=== PATIENT | male | born 1945 | race Caucasian/White ===

== ENCOUNTER 2016-05-20 09:15 | Outpatient (CLI) | payer MEDICARE, OTHER ==
[~2016-05-20] VITALS: Ht 172.7 cm; Wt 81.6 kg
[~2016-05-20 09:15] MED LIST: DIVA500T PO; IBUP-1780 PO; LEVE500T99 PO
[2016-05-21] MEDS ORDERED: PANT40TA2 PO (12:07)
== END 2016-05-20 11:02 ==
LOC: PREOP 09:15
PROVIDERS: ATTEND Surgery Pediatric Surgery
DX: Z01.818 Encounter for other preprocedural examination (principal); Z12.11 Encounter for screening for malignant neoplasm of colon; K21.9 Gastro-esophageal reflux disease without esophagitis

== ENCOUNTER 2016-05-21 09:39 | Day surgery (SDC) | payer MEDICARE, OTHER ==
[~2016-05-21] VITALS: Ht 172.7 cm; Wt 81.6 kg
[2016-05-21 09:40] VITALS: BP 112/89
--- NOTE | 2016-05-21 09:50 | Conscious Sedation/ASA ---
Conscious Sedation Pre-Proced Time Reviewed: 09:50 ASA Class: 2 Airway Mallampati Classification: ([place] appropriate class) I. II. III, IV Lungs Heart ASA score ASA 1: a normal healthy patient ASA 2: a patient with a mild systemic disease (mid diabetes, controlled hypertension, obesity ASA 3: a patient with a severe systemic disease that limits activity (angina , COPD, prior Myocardial infarction) ASA 4: a patient with an incapacitating disease that is a constant threat to life (CHF, renal failure) ASA 5: a moribund patient not expected to survive 24 hrs. (ruptured aneurysm) ASA 6: a declared brain patient whose organs are being harvested. For emergent operations, add the letter E after the classification Grade 2 Sedation Plan: Analgesia, Amnesia, Plan communicated to team members, Discussed options with patient/fam, Discussed risks with patient/fam Note The patient is an appropriate candidate to undergo the planned procedure, sedation, and anesthesia. The patient immediately re-assessed prior to indication. ANH SIMMS MD May 21, 2016 9:50 am
--- NOTE | 2016-05-21 09:51 | Progress Note-Pre Operative ---
Pre-Operative Progress Note H&P Reviewed The H&P was reviewed, patient examined and no changes noted. Date H&P Reviewed: May 21, 2016 Time H&P Reviewed: 09:50 Pre-Operative Diagnosis: GERD, family hx colon ca ANH SIMMS MD May 21, 2016 9:51 am
[2016-05-21] MEDS ORDERED: ONDANSETRON 4 MG/2 ML (SDV) Z0FRAN IV PRN (10:00)
[2016-05-21] MEDS ORDERED: NS IV 500 ML 500 ML IV ONE (10:00)
[2016-05-21] MEDS ORDERED: HYDROcodone/APAP 5 MG/325 MG (LORTAB) TAB PO PRN (10:00)
[2016-05-21] MEDS ORDERED: ACETAMINOPHEN 325 MG TABLET/CAPLET (TYLENOL) PO PRN (10:00)
[2016-05-21] MEDS ORDERED: NALOXONE 0.4 MG/ML 1 ML (NARCAN) VIAL IVP PRN (10:00)
[2016-05-21] MEDS ORDERED: morphine INJ 10 MG/ML 1ML (SYR OR VIAL) IV PRN (10:00)
[2016-05-21] MEDS ORDERED: FLUMAZENIL (ROMAZICON) 0.1 MG/ML 5 ML VIAL INJ PRN (10:00)
[2016-05-21] MEDS ORDERED: MIDAZOLAM 2 MG/2 ML (VERSED) VIAL ONE ×4 (10:41→10:42)
[2016-05-21] MEDS ORDERED: LIDOCAINE JELLY 2% (XYLOCAINE) 5 ML TUBE ONE (10:42)
[2016-05-21] MEDS ORDERED: HURRICAINE EXT TUBE (BENZOCAINE) ONE (10:42)
[2016-05-21] MEDS ORDERED: fentaNYL INJECTION 100 MCG/2 ML AMP ONE ×2 (10:42)
[2016-05-21] MEDS: fentaNYL INJECTION 100 MCG/2 ML AMP IVP PRN ×2 (11:10→11:36)
[2016-05-21] MEDS: MIDAZOLAM 2 MG/2 ML (VERSED) VIAL IVP PRN ×3 (11:12→11:40)
[2016-05-21] MEDS ORDERED: PANT40TA2 PO (12:07)
--- NOTE | 2016-05-21 12:07 | Progress Note-Post Operative ---
Post-Operative Progess Note Surgeon (s)/Ornamental Metal Worker Helper (s) Surgeon ANH SIMMS MD Ornamental Metal Worker Helper: none Pre-Operative Diagnosis GERD, family hx colon ca Post-Operative Diagnosis reflux esophagitis(class B), small HH(1.5cm), moderate gastritis. chronic stage 2 ext and int hemorrhoids, mild sigmoid diverticulosis. Post-Op Procedure Note Date of Procedure: May 21, 2016 Name of Procedure Performed: EGD with bx. Colonoscopy. Description of the Procedure: EGD with bx. Colonoscopy. Findings of the Procedure . Anesthesia Type CS Estimated blood loss (mL): minimal Specimen(s) collected/removed ge jxn, antrum ANH SIMMS MD May 21, 2016 12:07 pm
--- NOTE | 2016-05-21 12:08 | Discharge Inst-Surgical ---
D/C Lap Instructions-MENDEZ New, Converted, or Re-Newed RX: RX on Chart Follow Up 10 years Activity as tolerated High Fiber Diet 25g or more per day Avoid Alcohol, Caffeine, Spicy [place] and Acid foods. Drink 64 fluid oz or more of fluids per day. Symptoms to Report: Fever over 101 degree F, Nausea/Vomiting If any problems/questions: Contact your physician or go to Emergency Room ANH SIMMS MD May 21, 2016 12:08 pm
[2016-05-21 12:20] VITALS: BP 101/63
[2016-05-21 12:45] VITALS: BP 114/83
[2016-05-21 12:57] VITALS: BP 114/83
--- NOTE | 2016-05-22 06:40 | OPERATIVE REPORT ---
PROCEDURE PHYSICIAN: ANH WILLIAMSON DATE OF PROCEDURE: 05/21/2016 ATTENDING PRIMARY CARE PHYSICIAN: Dr. Carol Soliz. PREOPERATIVE DIAGNOSES: 1. Gastroesophageal reflux disease. 2. Peptic ulcer disease. 3. Screening colonoscopy. POSTOPERATIVE DIAGNOSES: 1. Reflux esophagitis, class B. 2. Small hiatal hernia, approximately 1.5 cm in size. 3. Moderate severity gastritis. 4. Chronic, stage II external and internal hemorrhoids. 5. Mild sigmoid diverticulosis. PROCEDURES: 1. EGD with biopsy. 2. Colonoscopy. SURGEON: Dr. Williamson. ANESTHESIA: Conscious sedation. ESTIMATED BLOOD LOSS: Minimal. FINDINGS: EGD: 1. Reflux esophagitis, class B. 2. No ulcers or strictures. 3. Small hiatal hernia 1.5 cm in size. 4. Moderate severity gastritis with no formal ulcerations. 5. The pylorus and duodenum appeared normal. COLONOSCOPY: 1. Chronic, stage II external and internal hemorrhoids, not actively edematous or inflamed and no bleeding. 2. Prostate gland was palpable and appeared normal. There was a mild sigmoid diverticulosis. 3. There were no polyps or any neoplasms identified. DISPOSITION: The patient tolerated the procedures well. Mr. Nathan Hummel is a 70-year-old male who has had issues with gastroesophageal reflux disease. However, this has worsened in the past several years. He does feel an epigastric burning sensation as well as crampy pain. He also is in need of a screening colonoscopy. His last colonoscopy was greater than 10 years ago, however he does believe that to be normal. He does have a family history of colon cancer with his father having the disease. PROCEDURE: EGD: The patient was brought to endoscopy suite, laid in the left lateral decubitus position with the head slightly elevated. After adequate IV pain and sedative medications and conscious sedation anesthesia, the mouthpiece was applied. The endoscope was placed in the mouth, visualizing the pharynx and hypopharyngeal region. Vocal cords, epiglottis and vallecula identified and appeared to be normal. The endoscope was then intubated into the esophageal opening and the esophagus insufflated. The endoscope was then advanced through the first, second, and 3rd portions of the esophagus at the level of the GE junction, a reflux esophagitis, class B identified. There were no ulcers or strictures identified. A biopsy was taken with forceps of visualization of good hemostasis. The endoscope was then easily advanced into stomach and endoscope retroflexed visualizing a small hiatal hernia, approximately 1.5 cm in size. There was a moderate severity gastritis noted more towards the stomach antrum. There were no formal ulcerations or any neoplasms. A biopsy was taken of the antrum with forceps with visualization of good hemostasis. The endoscope was advanced through the pylorus and first and second portions of duodenum which appeared normal. The endoscope was then slowly withdrawn while taking a second look and suctioning of residual air with no additional findings. The patient tolerated this portion of the procedure well. For his reflux esophagitis, hiatal hernia and gastritis, we will start him on Protonix 40 mg daily, as well as the necessary lifestyle and diet accommodation including smaller, more frequent meals, avoidance of eating at night, as well as head elevation while laying supine. We will also start him on pantoprazole 40 mg daily. COLONOSCOPY: Under the same conscious sedation anesthesia, we then proceeded with the colonoscopy portion the procedure. A digital rectal examination was performed, which revealed chronic stage II external and internal hemorrhoids, not actively edematous, nor inflamed and no bleeding. Normal sphincter tone was felt and there were no palpable masses. The prostate gland was palpable and appeared normal. The endoscope was then intubated into the anus and the rectum gently insufflated. The endoscope was then advanced through the valves of [place] the rectum with no polyps or any neoplasms identified. The endoscope was then advanced through the sigmoid colon where a mild sigmoid diverticulosis identified. The endoscope was then advanced through the remainder of the descending, transverse, and ascending colon to the cecum. These segments were normal. There were no polyps or any neoplasms identified throughout the colon or rectum. The endoscope was then slowly withdrawn while taking a second look and suctioning residual air with no additional findings. The patient tolerated this portion the procedure well. We will recommend a high fiber diet with at least 30 grams of fiber per day, as well as 64 fluid ounces minimum daily of water to promote soft stools on a daily basis. He does not need another colonoscopy for another 10 years; however, sooner if any problems arise. Job ID: [id number] Dictated Date: 05/21/2016 12:02:04 Naval Gunfire Liaison Officer Date: 05/22/2016 06:30:12 / jaclyn
--- OUTSIDE RECORDS SUMMARY | 2016-06-15 04:18 | XMS REPORT | Continuity of Care Document ---
Author Author [facility] Organization [facility] Address Unknown Phone Unavailable Allergies Active Description Code Type Severity Reaction Onset Reported/Identified Relationship to Patient Clinical Status Yes No Known Drug Allergies [id number] Drug Allergy Unknown N/ A 05/29/2008 Medications Problems Date Dx Coded Attending Type Code Diagnosis Diagnosed By 12/28/2014 JOVANI VALENTINE MD Ot R56.9 UNSPECIFIED CONVULSIONS 02/22/2015 DANNY HURTADO MD Ot R56.9 05/20/2016 ANH SIMMS MD, Ot K21.9 GASTRO-ESOPHAGEAL REFLUX DISEASE WITHOUT 05/20/2016 ANH SIMMS MD Ot Z01.818 ENCOUNTER FOR OTHER PREPROCEDURAL EXAMIN 05/20/2016 NAH SIMMS MD Ot Z12.11 ENCOUNTER FOR SCREENING FOR MALIGNANT NE 05/20/2016 ANH SIMMS MD, Ot K21.9 GASTRO-ESOPHAGEAL REFLUX DISEASE WITHOUT 05/20/2016 ANH SIMMS MD Ot Z01.818 ENCOUNTER FOR OTHER PREPROCEDURAL EXAMIN 05/20/2016 ANH SIMMS MD Ot Z12.11 ENCOUNTER FOR SCREENING FOR MALIGNANT NE 05/21/2016 DANNY HURTADO MD Ot R56.9 UNSPECIFIED CONVULSIONS 05/22/2016 ANH SIMMS MD, Ot K21.0 GASTRO-ESOPHAGEAL REFLUX DISEASE WITH ES 05/22/2016 ANH SIMMS MD Ot K29.70 GASTRITIS, UNSPECIFIED, WITHOUT BLEEDING 05/22/2016 ANH SIMMS MD, Ot K44.9 DIAPHRAGMATIC HERNIA WITHOUT OBSTRUCTION 05/22/2016 ANH SIMMS MD, Ot K57.90 DVRTCLOS OF INTEST, PART UNSP, W/O PERF 05/22/2016 ANH SIMMS MD, Ot K64.1 SECOND DEGREE HEMORRHOIDS 05/29/2016 ANH SIMMS MD Ot K21.0 GASTRO-ESOPHAGEAL REFLUX DISEASE WITH ES 05/29/2016 ANH SIMMS MD, Ot K29.70 GASTRITIS, UNSPECIFIED, WITHOUT BLEEDING 05/29/2016 ANH SIMMS MD, Ot K44.9 DIAPHRAGMATIC HERNIA WITHOUT OBSTRUCTION 05/29/2016 ANH SIMMS MD, Ot K57.90 DVRTCLOS OF INTEST, PART UNSP, W/O PERF 05/29/2016 ANH SIMMS MD, Ot K64.1 SECOND DEGREE HEMORRHOIDS Procedures Results Encounters ACCT No. Visit Date/Time Discharge Status Pt. Type Provider Facility Loc./Unit Complaint [id number] 05/21/2016 09:39:00 2016 12:50:00 DIS Outpatient ANH SIMMS MD [facility] ENDO SCREENING;REFLUX [id number] 05/20/2016 09:15:00 2016 11:02:00 DIS Outpatient ANH SIMMS MD [facility] PREOP SCREENING; REFLUX [id number] 12/26/2014 16:30:00 2014 11:50:00 DIS Inpatient JOVANI VALENTINE MD [facility] 4TH SEIZURE ACTIVITY NEW ONSET [id number] 01/29/2015 09:35:00 ACT Outpatient DANNY HURTADO MD [facility] RT SEIZURE
== END 2016-05-21 12:50 | disposition home or self-care (01) ==
LOC: DELPENDDIS → ENDO 09:39
PROVIDERS: ATTEND Surgery Pediatric Surgery
DX: K21.0 Gastro-esophageal reflux disease with esophagitis (principal); K57.90 Diverticulosis of intestine, part unspecified, without perforation or abscess without bleeding; K44.9 Diaphragmatic hernia without obstruction or gangrene; K29.70 Gastritis, unspecified, without bleeding; K64.1 Second degree hemorrhoids
CPT/HCPCS: 88305

== ENCOUNTER → 2018-11-22 | Outpatient (CLI) | payer MEDICARE, OTHER ==
[~2018-11-22] MED LIST changes: +PANT40TA2 PO
--- NOTE | 2018-11-22 16:05 | Diagnostic Imaging Report ---
PROCEDURE: CT abdomen and pelvis without contrast. TECHNIQUE: Multiple contiguous axial images were obtained through the abdomen and pelvis without the use of intravenous contrast. Auto Exposure Controls were utilized during the CT exam to meet ALARA standards for radiation dose reduction. INDICATION: Hematuria. COMPARISON: There are no prior studies available for comparison. FINDINGS: There is no evidence for nephrolithiasis or for urolithiasis, and the kidneys do not appear to be obstructed. There are several calcifications near the base of the bladder bilaterally. These are felt to be related to phleboliths. The urinary bladder itself is only partially filled and consequently difficult to assess. There is no obvious bladder abnormality evident. There is no sign of a solid renal mass. There is a 2.5 cm rounded area of low density along the mid portion of the left kidney. Most likely, this is cyst. The appendix was visualized and is not abnormally thickened. The prostate gland is borderline enlarged measuring 5 cm in maximum transverse diameter. There is diverticulosis of the sigmoid and descending colon, but there is no sign of acute diverticulitis. The liver, spleen, pancreas, adrenals, aorta, and inferior vena cava show no sign of an acute abnormality. The gallbladder is not well distended and consequently difficult to assess. The stomach is partially filled with fluid and particulate matter and also difficult to evaluate. The lung bases are clear. The bone windows show no evidence for a fracture or for a destructive lesion. IMPRESSION: 1. There is no evidence for nephrolithiasis or urolithiasis, and the kidneys do not seem to be obstructed. There is no sign of a solid renal mass, although there does appear to be a 2.4 cm cyst associated with the left kidney. 2. There is diverticulosis of the sigmoid and descending colon without evidence for acute diverticulitis. 3. There is no acute abnormality of the abdomen or pelvis identified. Dictated by: Dictated on workstation # [id number]
== END ==
LOC: RAD 14:41
PROVIDERS: ATTEND Urology
DX: K57.30 Diverticulosis of large intestine without perforation or abscess without bleeding (principal); R31.9 Hematuria, unspecified
CPT/HCPCS: 74176

== ENCOUNTER 2019-10-30 20:33 | Emergency (ER) | payer MEDICARE, OTHER ==
[~2019-10-30] VITALS: Ht 173 cm; Wt 72.3 kg
[2019-10-30] MEDS ORDERED: FINA5TAB6 (21:08)
[2019-10-30] MEDS ORDERED: TMSL.4C (21:08)
[2019-10-30] MEDS ORDERED: ZONI100C29 (21:08)
[2019-10-30 21:19] LABS: BILIRUBIN,URINE NEGATIVE (NEGATIVE); CLARITY,URINE CLEAR; COLOR,URINE YELLOW; GLUCOSE, URINE (UA) NEGATIVE (NEGATIVE); KETONES,URINE NEGATIVE (NEGATIVE); LEUKOCYTE ESTERASE ,URINE NEGATIVE (NEGATIVE); NITRITE,URINE NEGATIVE (NEGATIVE); PROTEIN,URINE NEGATIVE (NEGATIVE)
[2019-10-30 21:19] LABS: BASOPHILS % (AUTO) 0 % (0-10); EOSINOPHILS % (AUTO) 1 % (0-10); HEMATOCRIT 44 % (40-54); HEMOGLOBIN 15.3 G/DL (13.3-17.7); LYMPHOCYTES # (AUTO) 1.4 X 10^3 (1.0-4.0); LYMPHOCYTES % (AUTO) 20 % (12-44); MEAN CORPUSCULAR HEMOGLOBIN 35 PG (25-34); MEAN CORPUSCULAR HGB CONC 35 G/DL (32-36); MEAN CORPUSCULAR VOLUME 98 FL (80-99); MEAN PLATELET VOLUME 10.3 FL (7.4-10.4); MONOCYTES # (AUTO) 0.9 X 10^3 (0.0-1.0); MONOCYTES % (AUTO) 13 % (0-12); NEUTROPHILS # (AUTO) 4.6 X 10^3 (1.8-7.8); NEUTROPHILS % (AUTO) 66 % (42-75); PLATELET COUNT 109 10^3/uL (130-400); WHITE BLOOD COUNT 6.9 10^3/uL (4.3-11.0)
--- NOTE | 2019-10-30 21:23 | ED GU-Female ---
General Chief Complaint: - Urinary Stated Complaint: UTI Nursing Triage Note: BURNING URINATION X2 DAYS. REPORTS DIFFICULTY STARTING STREAM. Nursing Sepsis Screen: No Definite Risk Source: patient Exam Limitations: no limitations History of Present Illness Date Seen by Provider: Oct 30, 2019 Time Seen by Provider: 21:21 Initial Comments Pelvic pain and burning on urination for 2 days. No fever no chills. No nausea no vomiting. Follows with Dr. Abdalla for BPH Timing/Duration: just prior to arrival Severity/Quality: moderate Radiation: none Activities at Onset: none Associated Symptoms: denies symptoms Allergies and Home Medications Allergies Coded Allergies: No Known Drug Allergies (Verified , 05/29/08) Home Medications Divalproex Sodium 500 Mg Tablet.dr, 500 MG PO BID, (Reported) Pantoprazole Sodium 40 Mg Tablet.dr, 40 MG PO DAILY Prescribed by: ANH SIMMS on 05/21/16 1207 Patient Home Medication List Home Medication List Reviewed: Yes Review of Systems Review of Systems Constitutional: see HPI EENTM: see HPI Respiratory: no symptoms reported Cardiovascular: no symptoms reported Genitourinary: no symptoms reported Musculoskeletal: no symptoms reported Skin: no symptoms reported Psychiatric/Neurological: No Symptoms Reported Endocrine: No Symptoms Reported Hematologic/Lymphatic: No Symptoms Reported Past Hgpkufj-Vakzvn-Epfxmj Hx Patient Social History Alcohol Use: Denies Use Recreational Drug Use: No Smoking Status: Former Smoker Former Smoker, Quit: May 20, 1984 Recent Foreign Travel: No Contact w/Someone Who Travel: No Recent Infectious Disease Expo: No Recent Hopitalizations: No Physical Abuse: No Sexual Abuse: No Mistreated: No Fear: No Immunizations Up To Date Tetanus Booster (TDap): Unknown Date of Pneumonia Vaccine: Dec 15, 2014 Seasonal Allergies Seasonal Allergies: No Past Medical History Surgeries: Yes (INg hernia, Bilat RCR, ) Orthopedic, Tonsillectomy, Vasectomy Respiratory: No Cardiac: No Neurological: Yes (last seizure-mild one last week) Seizure Disorder Reproductive Disorders: No Sexually Transmitted Disease: No Genitourinary: No Gastrointestinal: Yes Gastroesophageal Reflux Musculoskeletal: No Endocrine: No HEENT: No Cancer: No Psychosocial: No Integumentary: No Blood Disorders: No Family Medical History No Pertinent Family Hx Physical Exam Vital Signs Vital Signs - First Documented 10/30/19 21:01 Temp 36.8 Pulse 65 Resp 16 B/P (MAP) 164/87 (112) Pulse Ox 98 O2 Delivery Room Air Capillary Refill : Less Than 3 Seconds Height, Weight, BMI Height: 5'8.00" Weight: 180lbs. 0.0oz. 81.334784xy; 24.00 BMI Method:Stated General Appearance: WD/WN, no apparent distress HEENT: PERRL/EOMI, normal ENT inspection Respiratory: lungs clear, normal breath sounds, no respiratory distress, no accessory muscle use Gastrointestinal: normal bowel sounds, non tender Neurologic/Psychiatric: alert, normal mood/affect, oriented x 3 Skin: normal color, warm/dry Progress/Results/Core Measures Suspected Sepsis Recent Fever Within 48 Hours: No Infection Criteria Present: None New/Unexplained Altered Menta: No Sepsis Screen: No Definite Risk SIRS Temperature: Pulse: 65 Respiratory Rate: 16 Laboratory Tests 10/30/19 21:10: White Blood Count 6.9 Blood Pressure 164 /87 Mean: 112 Laboratory Tests 10/30/19 21:10: Creatinine 1.39H, Platelet Count 109L Results/Orders Lab Results Laboratory Tests Test 10/30/19 21:06 10/30/19 21:10 Range/Units Urine Color YELLOW Urine Clarity CLEAR Urine pH 6.0 5-9 Urine Specific [place] 1.025 H 1.016-1.022 Urine Protein NEGATIVE NEGATIVE Urine Glucose (UA) NEGATIVE NEGATIVE Urine Ketones NEGATIVE NEGATIVE Urine Nitrite NEGATIVE NEGATIVE Urine Bilirubin NEGATIVE NEGATIVE Urine Urobilinogen 0.2 < = 1.0 MG/DL Urine Leukocyte Esterase NEGATIVE NEGATIVE Urine RBC (Auto) 1+ H NEGATIVE Urine RBC 10-25 H /HPF Urine WBC 0-2 /HPF Urine Squamous Epithelial Cells RARE /HPF Urine Crystals NONE /LPF Urine Bacteria NEGATIVE /HPF Urine Casts NONE /LPF Urine Mucus NEGATIVE /LPF Urine Culture Indicated NO White Blood Count 6.9 4.3-11.0 10^3/uL Red Blood Count 4.44 4.35-5.85 10^6/uL Hemoglobin 15.3 13.3-17.7 G/DL Hematocrit 44 40-54 % Mean Corpuscular Volume 98 80-99 FL Mean Corpuscular Hemoglobin 35 H 25-34 PG Mean Corpuscular Hemoglobin Concent 35 32-36 G/DL Red Cell Distribution Width 11.9 10.0-14.5 % Platelet Count 109 L 130-400 10^3/uL Mean Platelet Volume 10.3 7.4-10.4 FL Neutrophils (%) (Auto) 66 42-75 % Lymphocytes (%) (Auto) 20 12-44 % Monocytes (%) (Auto) 13 H 0-12 % Eosinophils (%) (Auto) 1 0-10 % Basophils (%) (Auto) 0 0-10 % Neutrophils # (Auto) 4.6 1.8-7.8 X 10^3 Lymphocytes # (Auto) 1.4 1.0-4.0 X 10^3 Monocytes # (Auto) 0.9 0.0-1.0 X 10^3 Eosinophils # (Auto) 0.0 0.0-0.3 10^3/uL Basophils # (Auto) 0.0 0.0-0.1 10^3/uL Sodium Level 140 135-145 MMOL/L Potassium Level 4.3 3.6-5.0 MMOL/L Chloride Level 106 98-107 MMOL/L Carbon Dioxide Level 25 21-32 MMOL/L Anion Gap 9 5-14 MMOL/L Blood Urea Nitrogen 26 H 7-18 MG/DL Creatinine 1.39 H 0.60-1.30 MG/DL Estimat Glomerular Filtration Rate 50 BUN/Creatinine Ratio 19 Glucose Level 134 H 70-105 MG/DL Calcium Level 9.3 8.5-10.1 MG/DL My Orders Orders - KITA PIERSON APRN Ua Culture If Indicated (10/30/19 20:48) Cbc With Automated Diff (10/30/19 20:48) Basic Metabolic Panel (10/30/19 20:48) Vital Signs/I&O 10/30/19 21:01 Temp 36.8 Pulse 65 Resp 16 B/P (MAP) 164/87 (112) Pulse Ox 98 O2 Delivery Room Air Capillary Refill : Less Than 3 Seconds Blood Pressure Mean: 112 Departure Impression Primary Impression: Pelvic pain Disposition: HOME, SELF-CARE Condition: Stable Departure-Patient Inst. Decision time for Depature: 21:45 Referrals: JARAD GRAMAJO MD (PCP) Primary Care Physician Add. Discharge Instructions: All discharge instructions reviewed with patient and/or family. Voiced understanding. KITA PIERSON APRN Oct 30, 2019 21:23
[2019-10-30 21:26] LABS: BACTERIA,URINE NEGATIVE /HPF; SQUAMOUS EPITHELIAL CELL,UR RARE /HPF; WBC,URINE 0-2 /HPF
[2019-10-30 21:36] LABS: CALCIUM 9.3 MG/DL (8.5-10.1); CREATININE SERUM 1.39 MG/DL (0.60-1.30); POTASSIUM 4.3 MMOL/L (3.6-5.0)
--- NOTE | 2019-10-30 22:13 | NUR ---
BLADDER SCAN DETECTED 42ML URINE.
[2019-10-30 22:15] VITALS: BP 151/84
== END 2019-10-30 22:17 | disposition home or self-care (01) ==
LOC: EDUNIT# 20:33 → ER 20:34
DX: R10.2 Pelvic and perineal pain (principal); K21.9 Gastro-esophageal reflux disease without esophagitis; G40.909 Epilepsy, unspecified, not intractable, without status epilepticus; Z87.891 Personal history of nicotine dependence
CPT/HCPCS: 36415; 80048; 81000; 85025

== ENCOUNTER 2020-06-05 08:45 | Outpatient (CLI) | payer MEDICARE, OTHER ==
[~2020-06-05] VITALS: Ht 172.7 cm; Wt 72.7 kg
[~2020-06-05 08:45] MED LIST changes: +FINA5TAB6 PO; +TMSL.4C PO; +ZONI100C29 PO
[2020-06-05] MEDS ORDERED: LAMO100T5 PO (09:10)
[2020-06-05] MEDS ORDERED: OXYB10TA6 PO (09:10)
== END 2020-06-05 09:19 | disposition home or self-care (01) ==
LOC: PREOP 08:45
PROVIDERS: ATTEND Urology
DX: Z01.818 Encounter for other preprocedural examination (principal)

== ENCOUNTER 2020-06-08 06:19 | Day surgery (SDC) | payer MEDICARE, OTHER ==
[~2020-06-08] VITALS: Ht 172.7 cm; Wt 72.7 kg
[2020-06-08] VITALS (10 sets, daily range): BP systolic 99–134; BP diastolic 56–93
[~2020-06-08 06:19] MED LIST changes: +LAMO100T5 PO; +OXYB10TA6 PO
[2020-06-08] MEDS ORDERED: LACTATED RINGERS 1,000 ML IV PRN (06:45)
[2020-06-08] MEDS ORDERED: cefTRIAXone FOR IV USE 1,000 MG in WATER (STERILE) FOR INJECTION 10 ML IV ONE (06:45)
--- NOTE | 2020-06-08 07:00 | Progress Note-Pre Operative ---
Pre-Operative Progress Note H&P Reviewed The H&P was reviewed, patient examined and no changes noted. Date Seen by Provider: Jun 08, 2020 Time Seen by Provider: 07:00 Date H&P Reviewed: Jun 08, 2020 Time H&P Reviewed: 07:00 Pre-Operative Diagnosis: BPH WITH PROSTATISM DIVYA WOODWARD MD Jun 08, 2020 07:00
[2020-06-08] MEDS ORDERED: fentaNYL INJ 100 MCG/2 ML AMP ONE (07:01)
--- NOTE | 2020-06-08 07:01 | Progress Note-Post Operative ---
Post-Operative Progess Note Surgeon (s)/Mva Operator (s) Surgeon DIVYA WOODWARD MD Mva Operator: NONE Pre-Operative Diagnosis BPH WITH PROSTATISM Post-Operative Diagnosis SAME Procedure & Operative Findings Date of Procedure 06/08/20 Procedure Performed/Findings TURP Anesthesia Type SPINAL Estimated Blood Loss Estimated blood loss (mL): 50cc Specimens/Packing Specimens Removed PROSTATE CHIPS Packing: NONE DIVYA WOODWARD MD Jun 08, 2020 07:01
[2020-06-08] MEDS ORDERED: MIDAZOLAM 2 MG/2 ML (VERSED) VIAL ONE (07:02)
[2020-06-08] MEDS ORDERED: BELLADONNA ALK/OPIUM (B & O) 30 MG SUPP PR PRN (07:15)
[2020-06-08] MEDS ORDERED: MILK OF MAGNESIA 400 MG/5 ML 30 ML UDC PO PRN (07:15)
[2020-06-08] MEDS ORDERED: proPOfol 200 MG/20 ML (DIPRIVAN) VIAL IV ONE (08:08)
[2020-06-08] MEDS ORDERED: BUPIVACAINE 0.5% 30 ML (SENSORCAINE) VIAL ONE (08:08)
[2020-06-08] MEDS: DOCUSATE SODIUM 100 MG (COLACE) CAP PO SCH ×2 (09:56→20:07)
[2020-06-08] MEDS: LACTATED RINGERS 1,000 ML IV SCH ×4 (13:32→20:08)
--- NOTE | 2020-06-08 15:28 | OPERATIVE REPORT ---
DATE OF SERVICE: 06/08/2020 PREOPERATIVE DIAGNOSIS: Benign prostatic hyperplasia with prostatism. POSTOPERATIVE DIAGNOSIS: Benign prostatic hyperplasia with prostatism. OPERATION PERFORMED: Transurethral resection of the prostate. SURGEON: Wilmer Woodward MD ANESTHESIA: Spinal. COMPLICATIONS: None. DESCRIPTION OF PROCEDURE: Under satisfactory spinal anesthesia, the patient in lithotomy position, genitalia were prepped and draped in the usual sterile fashion. Urethra was dilated with [place] sound to #30 Khmer easily. A 27-Khmer Gates resectoscope was introduced. Resection was started at the roof from 11 to 1 o'clock position, then the lateral lobe down to the 6 o'clock and finally the floor and apical tissue. There was wide opening of the fossa. Bleeders were cauterized as the resection was proceeding and hemostasis was complete. Prostatic chips were evacuated and cystoscopy confirmed intact ureteric orifices, veru and sphincter with good reflex. Resectoscope was removed and a 22-Khmer 3-way 30 mL balloon catheter was inserted in the bladder. The balloon inflated to 60 mL, connected to continuous bladder irrigation and put on traction, the return of which was clear. Estimated blood loss 50 mL, none of which was replaced. The patient tolerated the procedure and anesthesia well and was sent to recovery room in stable condition. Job ID: [id number] DocumentID: [id number] Dictated Date: 06/08/2020 08:35:37 Inventory Assistant Date: 06/08/2020 15:27:34 Dictated By: WILMER WOODWARD MD
[2020-06-09 00:25] VITALS: BP 129/77
[2020-06-09 04:00] VITALS: BP 118/75
[2020-06-09] MEDS: LACTATED RINGERS 1,000 ML IV SCH ×2 (05:44→09:09)
[2020-06-09 08:00] VITALS: BP 140/72
[2020-06-09] MEDS: DOCUSATE SODIUM 100 MG (COLACE) CAP PO SCH (09:06)
[2020-06-09 12:00] VITALS: BP 116/69
--- NOTE | 2020-06-09 13:51 | Progress Note - Urology ---
Progress Note-Urology Progress Notes/Assess & Plan Progress/Assessment & Plan DOING AND FEELING VERY WELL. VOIDING WELL. URINE TINGED. GOOD CONTROL AND STREAM. FEELS EMPTYING WELL. HOME WITH INSTRUCTIONS Final Diagnosis BPH WITH PROSTATISM DIVYA WOODWARD MD Jun 09, 2020 13:51
--- NOTE | 2020-06-09 13:55 | Discharge Inst-Urology ---
Discharge Inst-Urology Reconcile Patient Problems Problems Reviewed?: Yes Final Diagnosis BPH Patient Instructions/Follow Up Plan/Assessment/Instructions Discharge. Patient to call office on Thursday to schedule appointment in 2 weeks. Keep bowels soft and moving Please call Rx for Bactrim DS BID for one week Increase oral fluids for 48 hours and then as needed TO KEEP URINE CLEAR Diet as tolerated. If questions or concerns contact your physician Or seek help at emergency department. DIVYA WOODWARD MD Jun 09, 2020 13:55
[2020-06-09] MEDS ORDERED: SULF1TAB35 PO (14:47)
== END 2020-06-09 15:00 | disposition home or self-care (01) ==
LOC: SDC 06:19 → 4TH 08:43 → SDC 06-09 15:00
PROVIDERS: ATTEND Urology
DX: N40.0 Benign prostatic hyperplasia without lower urinary tract symptoms (principal); K21.9 Gastro-esophageal reflux disease without esophagitis; Z79.899 Other long term (current) drug therapy
CPT/HCPCS: 86850; 86900; 86901; 87081; 94664